=== PATIENT | female | born 1955 | race Caucasian/White ===

== ENCOUNTER 2018-12-24 18:03 | Inpatient (IN) | payer OTHER, MEDICAID, MEDICARE ==
[2018-12-24 18:51] LABS: ADD MAN DIFF? NO
[2018-12-24 18:54] LABS: ABNORMAL IP MESSAGE 1; BASOPHILS % 0.9 % (0.0-2.0); EOSINOPHILS # 0.2 10^3/ul (0.0-0.5); EOSINOPHILS % 5.7 % (0.0-7.0); HEMATOCRIT 33.4 % (37.0-47.0); HEMOGLOBIN 11.2 g/dl (12.0-16.0); LYMPHOCYTES # 0.6 10^3/ul (0.8-2.9); LYMPHOCYTES % 16.7 % (15.0-51.0); MEAN CORPUSCULAR HEMOGLOBIN 37.2 pg (29.0-33.0); MEAN CORPUSCULAR HGB CONC 33.5 g/dl (32.0-37.0); MEAN PLATELET VOLUME 10.5 fl (7.4-10.4); MONOCYTE # 0.4 10^3/ul (0.3-0.9); MONOCYTES % 12.8 % (0.0-11.0); NEUTROPHIL # 2.1 10^3/ul (1.6-7.5); NEUTROPHILS % 63.6 % (39.0-77.0); PLATELET COUNT 165 10^3/UL (140-415); RED BLOOD COUNT 3.01 10^6/ul (4.20-5.40); RED CELL DISTRIBUTION WIDTH 14.4 % (11.5-14.5)
[2018-12-24 18:54] LABS: WHITE BLOOD COUNT 3.4 10^3/ul (4.8-10.8)
[2018-12-24 19:22] LABS: ANION GAP 10 (5-13); BLOOD UREA NITROGEN 27 mg/dl (7-20); CALCIUM 9.8 mg/dl (8.4-10.2); CARBON DIOXIDE 26 mmol/L (21-31); CHLORIDE 99 mmol/L (97-110); CREATININE 2.99 mg/dl (0.44-1.00); Estimated GFR 16 mL/min (>60); GLUCOSE 115 mg/dl (70-220); SODIUM 135 mmol/L (135-144)
[2018-12-24] MEDS: hydrALAzine 20 MG INJ IV ×2 (20:40→22:50)
[2018-12-24] MEDS: FUROSEMIDE 40 MG INJ IV ×2 (20:40→20:54)
[2018-12-25] MEDS ORDERED: NACL 0.9% 3 ML SYG IV (00:30)
[2018-12-25] MEDS: DOXAZOSIN 1 MG TAB PO ×2 (02:36→08:31)
[2018-12-25] MEDS: LOSARTAN 50 MG TAB PO ×3 (02:37→20:58)
[2018-12-25] MEDS: ALPRAZOLAM 1 MG TAB PO (03:58)
[2018-12-25 05:51] LABS: ADD MAN DIFF? NO
[2018-12-25 05:56] LABS: BASOPHILS % 0.9 % (0.0-2.0); EOSINOPHILS # 0.1 10^3/ul (0.0-0.5); EOSINOPHILS % 3.4 % (0.0-7.0); HEMATOCRIT 30.8 % (37.0-47.0); HEMOGLOBIN 10.4 g/dl (12.0-16.0); LYMPHOCYTES # 0.7 10^3/ul (0.8-2.9); MEAN CORPUSCULAR HEMOGLOBIN 37.8 pg (29.0-33.0); MEAN CORPUSCULAR HGB CONC 33.8 g/dl (32.0-37.0); MEAN PLATELET VOLUME 10.4 fl (7.4-10.4); MONOCYTE # 0.5 10^3/ul (0.3-0.9); MONOCYTES % 12.9 % (0.0-11.0); NEUTROPHIL # 2.2 10^3/ul (1.6-7.5); NEUTROPHILS % 61.8 % (39.0-77.0); PLATELET COUNT 164 10^3/UL (140-415); RED BLOOD COUNT 2.75 10^6/ul (4.20-5.40); RED CELL DISTRIBUTION WIDTH 14.6 % (11.5-14.5)
[2018-12-25 05:56] LABS: WHITE BLOOD COUNT 3.5 10^3/ul (4.8-10.8)
[2018-12-25] MEDS: hydrALAzine 20 MG INJ IV (06:16)
[2018-12-25 06:27] LABS: ALANINE AMINOTRANSFERASE 12 IU/L (13-69); ALBUMIN 3.7 g/dl (3.3-4.9); ALBUMIN/GLOBULIN RATIO 1.48; ALKALINE PHOSPHATASE 114 IU/L (42-121); ANION GAP 11 (5-13); ASPARTATE AMINO TRANSFERASE 24 IU/L (15-46); BLOOD UREA NITROGEN 36 mg/dl (7-20); CALCIUM 9.7 mg/dl (8.4-10.2); CARBON DIOXIDE 29 mmol/L (21-31); CHLORIDE 98 mmol/L (97-110); CHOL/HDL RATIO 2.3 RATIO; CHOLESTEROL 126 mg/dl (100-200); Estimated GFR 13 mL/min (>60); GLUCOSE 97 mg/dl (70-220); HDL CHOLESTEROL 54 mg/dl (35-98); LDL CHOLESTEROL,CALCULATED 48 mg/dl; MAGNESIUM 2.6 mg/dl (1.7-2.5); SODIUM 138 mmol/L (135-144); TOTAL PROTEIN 6.2 g/dl (6.1-8.1); TRIGLYCERIDES 122 mg/dl (0-149)
[2018-12-25] MEDS ORDERED: LABETALOL HCL 20MG INJ IV (06:30)
[2018-12-25] MEDS: LORAZEPAM 2 MG INJ IV (07:21)
[2018-12-25 08:08] LABS: HEMOGLOBIN A1C 4.7 % (0-5.9)
[2018-12-25] MEDS: HEPARIN 5,000 UNIT/1 ML VIAL SC ×2 (08:28→21:00)
[2018-12-25] MEDS: LEVOTHYROXINE 112 MCG TAB PO (08:28)
[2018-12-25] MEDS: FOLIC ACID 1 MG TAB PO (08:30)
[2018-12-25] MEDS: LAMOTRIGINE 25 MG TAB PO (08:30)
[2018-12-25] MEDS: CINACALCET 30 MG TAB PO (08:31)
[2018-12-25] MEDS: ASPIRIN (EC) 81 MG TAB PO (08:31)
[2018-12-25] MEDS: MULTIVIT/CA CARB/B CMPLX/FA TAB PO (08:32)
[2018-12-25] MEDS: SEVELAMER CARBONATE 0.8 GM PKT PO ×3 (12:00→17:25)
[2018-12-25] MEDS: ONDANSETRON 4 MG INJ IV (12:12)
[2018-12-25] MEDS: AMLODIPINE 10 MG TAB PO (14:26)
[2018-12-25] MEDS ORDERED: PENDING SANTYL ORDER FOR WOUND CARE XX (14:30)
[2018-12-25 14:54] LABS: HEPATITIS B SURFACE ANTIGEN NEGATIVE (NEGATIVE)
[2018-12-25] MEDS: NIFEdipine (XL) 60 MG TAB PO (16:28)
[2018-12-25] MEDS ORDERED: QUETIAPINE 100 MG TAB PO (21:00)
[2018-12-25] MEDS: QUETIAPINE 100 MG TAB PO (22:40)
[2018-12-25] MEDS: clonAZEPAM 0.5 MG TAB PO (22:40)
[2018-12-26] MEDS: hydrALAzine 20 MG INJ IV ×2 (00:32→21:50)
[2018-12-26] MEDS: ACETAMINOPHEN 325 MG TAB PO (04:22)
[2018-12-26 05:31] LABS: ADD MAN DIFF? NO
[2018-12-26 05:34] LABS: BASOPHIL # 0.1 10^3/ul (0.0-0.1); BASOPHILS % 2.2 % (0.0-2.0); EOSINOPHILS # 0.2 10^3/ul (0.0-0.5); EOSINOPHILS % 5.1 % (0.0-7.0); HEMATOCRIT 31.4 % (37.0-47.0); HEMOGLOBIN 10.1 g/dl (12.0-16.0); LYMPHOCYTES # 0.8 10^3/ul (0.8-2.9); LYMPHOCYTES % 22.3 % (15.0-51.0); MEAN CORPUSCULAR HEMOGLOBIN 36.3 pg (29.0-33.0); MEAN CORPUSCULAR HGB CONC 32.2 g/dl (32.0-37.0); MEAN CORPUSCULAR VOLUME 112.9 fl (82.0-101.0); MEAN PLATELET VOLUME 10.2 fl (7.4-10.4); MONOCYTE # 0.5 10^3/ul (0.3-0.9); NEUTROPHIL # 2.1 10^3/ul (1.6-7.5); NEUTROPHILS % 56.1 % (39.0-77.0); PLATELET COUNT 166 10^3/UL (140-415); RED BLOOD COUNT 2.78 10^6/ul (4.20-5.40); RED CELL DISTRIBUTION WIDTH 14.5 % (11.5-14.5)
[2018-12-26 05:34] LABS: WHITE BLOOD COUNT 3.7 10^3/ul (4.8-10.8)
[2018-12-26 06:00] LABS: ANION GAP 11 (5-13); BLOOD UREA NITROGEN 51 mg/dl (7-20); CALCIUM 9.3 mg/dl (8.4-10.2); CARBON DIOXIDE 28 mmol/L (21-31); CHLORIDE 97 mmol/L (97-110); CREATININE 4.72 mg/dl (0.44-1.00); Estimated GFR 9 mL/min (>60); GLUCOSE 101 mg/dl (70-220); MAGNESIUM 2.7 mg/dl (1.7-2.5); PHOSPHORUS 3.9 mg/dl (2.5-4.9); POTASSIUM 4.8 mmol/L (3.5-5.1); SODIUM 136 mmol/L (135-144)
[2018-12-26] MEDS: LEVOTHYROXINE 112 MCG TAB PO (06:07)
[2018-12-26] MEDS: HEPARIN 5,000 UNIT/1 ML VIAL SC ×2 (09:00→21:00)
[2018-12-26] MEDS: FOLIC ACID 1 MG TAB PO (09:10)
[2018-12-26] MEDS: MULTIVIT/CA CARB/B CMPLX/FA TAB PO (09:10)
[2018-12-26] MEDS: SEVELAMER CARBONATE 0.8 GM PKT PO ×3 (09:11→17:53)
[2018-12-26] MEDS: ASPIRIN (EC) 81 MG TAB PO (09:11)
[2018-12-26] MEDS: CINACALCET 30 MG TAB PO (09:11)
[2018-12-26] MEDS: LOSARTAN 50 MG TAB PO ×2 (09:13→19:44)
[2018-12-26] MEDS: NIFEdipine (XL) 60 MG TAB PO ×2 (09:14→19:45)
[2018-12-26] MEDS: LAMOTRIGINE 25 MG TAB PO (09:14)
[2018-12-26] MEDS: ONDANSETRON 4 MG INJ IV (12:30)
[2018-12-26] MEDS: DOCUSATE SODIUM 250 MG CAP PO (14:15)
[2018-12-26] MEDS: AMOXICILLIN 500 MG CAP PO ×2 (14:15→21:49)
[2018-12-26] MEDS: POLYETHYLENE GLYCOL 17 GM PACKET PO (14:15)
[2018-12-26] MEDS: QUETIAPINE 100 MG TAB PO (21:49)
[2018-12-26] MEDS: MAGNESIUM HYDROXIDE 30ML CUP PO (21:49)
[2018-12-26] MEDS: clonAZEPAM 0.5 MG TAB PO (21:52)
[2018-12-27 06:07] LABS: ADD MAN DIFF? NO
[2018-12-27 06:18] LABS: BASOPHIL # 0.1 10^3/ul (0.0-0.1); BASOPHILS % 1.2 % (0.0-2.0); EOSINOPHILS # 0.3 10^3/ul (0.0-0.5); HEMATOCRIT 31.9 % (37.0-47.0); HEMOGLOBIN 10.5 g/dl (12.0-16.0); LYMPHOCYTES # 0.8 10^3/ul (0.8-2.9); LYMPHOCYTES % 18.3 % (15.0-51.0); MEAN CORPUSCULAR HEMOGLOBIN 36.8 pg (29.0-33.0); MEAN CORPUSCULAR HGB CONC 32.9 g/dl (32.0-37.0); MEAN CORPUSCULAR VOLUME 111.9 fl (82.0-101.0); MEAN PLATELET VOLUME 10.3 fl (7.4-10.4); MONOCYTE # 0.5 10^3/ul (0.3-0.9); MONOCYTES % 11.3 % (0.0-11.0); NEUTROPHIL # 2.6 10^3/ul (1.6-7.5); PLATELET COUNT 193 10^3/UL (140-415); RED BLOOD COUNT 2.85 10^6/ul (4.20-5.40); RED CELL DISTRIBUTION WIDTH 14.6 % (11.5-14.5)
[2018-12-27 06:18] LABS: WHITE BLOOD COUNT 4.2 10^3/ul (4.8-10.8)
[2018-12-27 06:34] LABS: IRON 65 ug/dl (35-150)
[2018-12-27 06:38] LABS: ANION GAP 11 (5-13); BLOOD UREA NITROGEN 39 mg/dl (7-20); CARBON DIOXIDE 30 mmol/L (21-31); CHLORIDE 98 mmol/L (97-110); CREATININE 3.82 mg/dl (0.44-1.00); Estimated GFR 12 mL/min (>60); GLUCOSE 124 mg/dl (70-220); MAGNESIUM 2.8 mg/dl (1.7-2.5); PHOSPHORUS 2.8 mg/dl (2.5-4.9); POTASSIUM 4.7 mmol/L (3.5-5.1); SODIUM 139 mmol/L (135-144)
[2018-12-27 06:43] LABS: % IRON SATURATION 31 % SAT (22-52); TOTAL IRON BINDING CAPACITY 210 ug/dl (241-421)
[2018-12-27] MEDS: AMOXICILLIN 500 MG CAP PO ×3 (06:51→21:33)
[2018-12-27] MEDS: HEPARIN 5,000 UNIT/1 ML VIAL SC ×2 (09:00→20:36)
[2018-12-27] MEDS: SEVELAMER CARBONATE 0.8 GM PKT PO ×3 (09:37→17:56)
[2018-12-27] MEDS: FOLIC ACID 1 MG TAB PO (09:38)
[2018-12-27] MEDS: ASPIRIN (EC) 81 MG TAB PO (09:38)
[2018-12-27] MEDS: POLYETHYLENE GLYCOL 17 GM PACKET PO (09:38)
[2018-12-27] MEDS: LEVOTHYROXINE 112 MCG TAB PO (09:38)
[2018-12-27] MEDS: LAMOTRIGINE 25 MG TAB PO (09:39)
[2018-12-27] MEDS: SENNA TAB PO (09:40)
[2018-12-27] MEDS: MULTIVIT/CA CARB/B CMPLX/FA TAB PO (09:40)
[2018-12-27] MEDS: NIFEdipine (XL) 60 MG TAB PO ×2 (09:41→20:29)
[2018-12-27] MEDS: LOSARTAN 50 MG TAB PO ×2 (09:41→20:28)
[2018-12-27] MEDS: SPIRONOLACTONE 50 MG TAB PO (09:42)
[2018-12-27] MEDS: CINACALCET 30 MG TAB PO (12:27)
[2018-12-27] MEDS: DOCUSATE SODIUM 250 MG CAP PO (12:27)
[2018-12-27 15:48] LABS: ADD UMIC YES; UR ASCORBIC ACID NEGATIVE (NEGATIVE); UR BILIRUBIN (Dip) NEGATIVE (NEGATIVE); UR BLOOD (Dip) NEGATIVE (NEGATIVE); UR CLARITY CLEAR (CLEAR); UR COLOR STRAW (YELLOW); UR GLUCOSE (Dip) NEGATIVE (NEGATIVE); UR KETONES (Dip) NEGATIVE (NEGATIVE); UR LEUKOCYTE ESTERASE (Dip) NEGATIVE Leu/ul (NEGATIVE); UR NITRITE (Dip) NEGATIVE (NEGATIVE); UR RBC 1 /HPF (0-5); UR SPECIFIC GRAVITY (Dip) 1.005 (1.003-1.030); UR TOTAL PROTEIN (Dip) 2+ mg/dl (NEGATIVE); UR UROBILINOGEN (Dip) NEGATIVE (NEGATIVE); UR WBC 0 /HPF (0-5)
[2018-12-27] MEDS: QUETIAPINE 100 MG TAB PO (20:28)
[2018-12-27] MEDS: clonAZEPAM 0.5 MG TAB PO (20:29)
[2018-12-28 05:41] LABS: ADD MAN DIFF? NO
[2018-12-28 05:44] LABS: WHITE BLOOD COUNT 4.8 10^3/ul (4.8-10.8)
[2018-12-28 05:44] LABS: BASOPHIL # 0.1 10^3/ul (0.0-0.1); EOSINOPHILS # 0.3 10^3/ul (0.0-0.5); EOSINOPHILS % 6.9 % (0.0-7.0); HEMATOCRIT 31.5 % (37.0-47.0); HEMOGLOBIN 10.2 g/dl (12.0-16.0); LYMPHOCYTES # 0.9 10^3/ul (0.8-2.9); LYMPHOCYTES % 18.4 % (15.0-51.0); MEAN CORPUSCULAR HEMOGLOBIN 36.4 pg (29.0-33.0); MEAN CORPUSCULAR HGB CONC 32.4 g/dl (32.0-37.0); MEAN CORPUSCULAR VOLUME 112.5 fl (82.0-101.0); MEAN PLATELET VOLUME 10.2 fl (7.4-10.4); MONOCYTE # 0.7 10^3/ul (0.3-0.9); NEUTROPHIL # 2.8 10^3/ul (1.6-7.5); NEUTROPHILS % 59.5 % (39.0-77.0); PLATELET COUNT 186 10^3/UL (140-415); RED CELL DISTRIBUTION WIDTH 14.9 % (11.5-14.5)
[2018-12-28] MEDS: AMOXICILLIN 500 MG CAP PO ×3 (06:14→21:37)
[2018-12-28] MEDS: LEVOTHYROXINE 112 MCG TAB PO (06:14)
[2018-12-28 06:15] LABS: ANION GAP 11 (5-13); BLOOD UREA NITROGEN 62 mg/dl (7-20); CALCIUM 8.9 mg/dl (8.4-10.2); CARBON DIOXIDE 26 mmol/L (21-31); CHLORIDE 99 mmol/L (97-110); CREATININE 4.78 mg/dl (0.44-1.00); Estimated GFR 9 mL/min (>60); GLUCOSE 100 mg/dl (70-220); POTASSIUM 5.9 mmol/L (3.5-5.1); SODIUM 136 mmol/L (135-144)
[2018-12-28] MEDS: SENNA TAB PO (08:39)
[2018-12-28] MEDS: HEPARIN 5,000 UNIT/1 ML VIAL SC ×2 (08:39→21:00)
[2018-12-28] MEDS: SEVELAMER CARBONATE 0.8 GM PKT PO ×3 (08:39→17:29)
[2018-12-28] MEDS: CINACALCET 30 MG TAB PO (08:39)
[2018-12-28] MEDS: LAMOTRIGINE 25 MG TAB PO ×2 (08:40→21:36)
[2018-12-28] MEDS: SPIRONOLACTONE 50 MG TAB PO (08:40)
[2018-12-28] MEDS: DOCUSATE SODIUM 250 MG CAP PO (08:40)
[2018-12-28] MEDS: LOSARTAN 50 MG TAB PO ×2 (08:41→21:37)
[2018-12-28] MEDS: MULTIVIT/CA CARB/B CMPLX/FA TAB PO (08:41)
[2018-12-28] MEDS: FOLIC ACID 1 MG TAB PO (08:41)
[2018-12-28] MEDS: ASPIRIN (EC) 81 MG TAB PO (08:41)
[2018-12-28] MEDS: POLYETHYLENE GLYCOL 17 GM PACKET PO (08:42)
[2018-12-28] MEDS: NIFEdipine (XL) 60 MG TAB PO ×2 (08:42→21:34)
[2018-12-28] MEDS: clonAZEPAM 0.5 MG TAB PO ×2 (08:51→21:38)
[2018-12-28] MEDS: MAGNESIUM CITRATE 300 ML BTL PO (12:10)
[2018-12-28] MEDS ORDERED: LAMOTRIGINE 25 MG TAB GTB (12:30)
[2018-12-28] MEDS: BUSPIRONE 5 MG TAB PO ×2 (14:15→21:37)
[2018-12-28] MEDS: CEFEPIME 1GM/50 ML (PMX) 50 ML IVPB (14:30)
[2018-12-28] MEDS: hydrALAzine 20 MG INJ IV (20:19)
[2018-12-28] MEDS ORDERED: LAMOTRIGINE 25 MG TAB PO (21:00)
[2018-12-28] MEDS: LACTOBACILLUS RHAMNOSUS CAP PO (21:34)
[2018-12-28] MEDS: QUETIAPINE 100 MG TAB PO (21:35)
[2018-12-28] MEDS: HYDROCODONE/APAP (5/325) TAB PO (22:21)
[2018-12-29] MEDS: hydrALAzine 20 MG INJ IV ×2 (04:26→11:46)
[2018-12-29] MEDS: AMOXICILLIN 500 MG CAP PO ×2 (06:08→13:36)
[2018-12-29] MEDS: LEVOTHYROXINE 112 MCG TAB PO (06:08)
[2018-12-29 06:12] LABS: ADD MAN DIFF? NO
[2018-12-29 06:20] LABS: WHITE BLOOD COUNT 4.3 10^3/ul (4.8-10.8)
[2018-12-29 06:21] LABS: BASOPHILS % 0.7 % (0.0-2.0); EOSINOPHILS # 0.3 10^3/ul (0.0-0.5); EOSINOPHILS % 7.5 % (0.0-7.0); HEMATOCRIT 31.7 % (37.0-47.0); HEMOGLOBIN 10.7 g/dl (12.0-16.0); LYMPHOCYTES # 0.7 10^3/ul (0.8-2.9); LYMPHOCYTES % 17.2 % (15.0-51.0); MEAN CORPUSCULAR HEMOGLOBIN 37.4 pg (29.0-33.0); MEAN CORPUSCULAR HGB CONC 33.8 g/dl (32.0-37.0); MEAN CORPUSCULAR VOLUME 110.8 fl (82.0-101.0); MEAN PLATELET VOLUME 9.9 fl (7.4-10.4); MONOCYTE # 0.6 10^3/ul (0.3-0.9); MONOCYTES % 13.4 % (0.0-11.0); NEUTROPHIL # 2.6 10^3/ul (1.6-7.5); PLATELET COUNT 183 10^3/UL (140-415); RED BLOOD COUNT 2.86 10^6/ul (4.20-5.40); RED CELL DISTRIBUTION WIDTH 14.6 % (11.5-14.5)
[2018-12-29 07:01] LABS: ANION GAP 13 (5-13); BLOOD UREA NITROGEN 42 mg/dl (7-20); CALCIUM 8.4 mg/dl (8.4-10.2); CARBON DIOXIDE 27 mmol/L (21-31); CHLORIDE 95 mmol/L (97-110); CREATININE 3.28 mg/dl (0.44-1.00); Estimated GFR 14 mL/min (>60); GLUCOSE 103 mg/dl (70-220); POTASSIUM 5.1 mmol/L (3.5-5.1); SODIUM 135 mmol/L (135-144)
[2018-12-29] MEDS: DOCUSATE SODIUM 250 MG CAP PO (08:16)
[2018-12-29] MEDS: ASPIRIN (EC) 81 MG TAB PO (08:17)
[2018-12-29] MEDS: BUSPIRONE 5 MG TAB PO ×3 (08:17→20:17)
[2018-12-29] MEDS: LACTOBACILLUS RHAMNOSUS CAP PO ×2 (08:17→20:15)
[2018-12-29] MEDS: FOLIC ACID 1 MG TAB PO (08:17)
[2018-12-29] MEDS: MULTIVIT/CA CARB/B CMPLX/FA TAB PO (08:17)
[2018-12-29] MEDS: SENNA TAB PO (08:18)
[2018-12-29] MEDS: NIFEdipine (XL) 60 MG TAB PO ×2 (08:18→20:16)
[2018-12-29] MEDS: LOSARTAN 50 MG TAB PO ×2 (08:18→20:15)
[2018-12-29] MEDS: LAMOTRIGINE 25 MG TAB PO ×2 (08:19→20:15)
[2018-12-29] MEDS: POLYETHYLENE GLYCOL 17 GM PACKET PO (08:19)
[2018-12-29] MEDS: SEVELAMER CARBONATE 0.8 GM PKT PO ×3 (08:19→18:56)
[2018-12-29] MEDS: SPIRONOLACTONE 50 MG TAB PO (08:45)
[2018-12-29] MEDS: CINACALCET 30 MG TAB PO (08:45)
[2018-12-29] MEDS: HEPARIN 5,000 UNIT/1 ML VIAL SC ×2 (08:46→20:17)
[2018-12-29] MEDS: HYDROCODONE/APAP (5/325) TAB PO ×2 (11:47→20:21)
[2018-12-29] MEDS: clonAZEPAM 0.5 MG TAB PO ×2 (13:35→20:15)
[2018-12-29] MEDS: CEFEPIME 1GM/50 ML (PMX) 50 ML IVPB (16:18)
[2018-12-29] MEDS: QUETIAPINE 100 MG TAB PO (20:16)
[2018-12-29] MEDS: BENAZEPRIL 40 MG TAB PO (22:39)
[2018-12-30] MEDS: LEVOTHYROXINE 112 MCG TAB PO (06:03)
[2018-12-30] MEDS: CINACALCET 30 MG TAB PO (09:00)
[2018-12-30] MEDS: HEPARIN 5,000 UNIT/1 ML VIAL SC ×2 (09:00→20:42)
[2018-12-30] MEDS: MULTIVIT/CA CARB/B CMPLX/FA TAB PO (09:30)
[2018-12-30] MEDS: POLYETHYLENE GLYCOL 17 GM PACKET PO (09:30)
[2018-12-30] MEDS: LOSARTAN 50 MG TAB PO ×2 (09:31→20:41)
[2018-12-30] MEDS: FOLIC ACID 1 MG TAB PO (09:31)
[2018-12-30] MEDS: BUSPIRONE 5 MG TAB PO ×3 (09:31→20:39)
[2018-12-30] MEDS: BENAZEPRIL 40 MG TAB PO (09:31)
[2018-12-30] MEDS: LACTOBACILLUS RHAMNOSUS CAP PO ×2 (09:31→20:39)
[2018-12-30] MEDS: SPIRONOLACTONE 50 MG TAB PO (09:32)
[2018-12-30] MEDS: SENNA TAB PO (09:32)
[2018-12-30] MEDS: ASPIRIN (EC) 81 MG TAB PO (09:32)
[2018-12-30] MEDS: LAMOTRIGINE 25 MG TAB PO ×2 (09:32→20:41)
[2018-12-30] MEDS: SEVELAMER CARBONATE 0.8 GM PKT PO ×3 (09:33→18:07)
[2018-12-30] MEDS: DOCUSATE SODIUM 250 MG CAP PO (09:34)
[2018-12-30] MEDS: NIFEdipine (XL) 60 MG TAB PO ×2 (11:40→20:41)
[2018-12-30] MEDS: HYDROCODONE/APAP (5/325) TAB PO ×2 (12:32→23:07)
[2018-12-30] MEDS: ONDANSETRON 4 MG INJ IV (12:56)
[2018-12-30] MEDS: CEFEPIME 1GM/50 ML (PMX) 50 ML IVPB (14:00)
[2018-12-30] MEDS: AMOXICILLIN 500 MG CAP PO (14:01)
[2018-12-30 14:11] LABS: FREE T4 (FREE THYROXINE) 1.14 ng/dl (0.78-2.44)
[2018-12-30] MEDS: clonAZEPAM 0.5 MG TAB PO ×2 (18:07→20:40)
[2018-12-30] MEDS: QUETIAPINE 100 MG TAB PO (20:40)
[2018-12-31] MEDS: LEVOTHYROXINE 112 MCG TAB PO (06:04)
[2018-12-31] MEDS: HYDROCODONE/APAP (5/325) TAB PO (06:11)
[2018-12-31] MEDS: DOCUSATE SODIUM 250 MG CAP PO (08:38)
[2018-12-31] MEDS: SEVELAMER CARBONATE 0.8 GM PKT PO ×3 (08:38→17:54)
[2018-12-31] MEDS: SENNA TAB PO (08:38)
[2018-12-31] MEDS: CINACALCET 30 MG TAB PO (08:38)
[2018-12-31] MEDS: FOLIC ACID 1 MG TAB PO (08:38)
[2018-12-31] MEDS: BUSPIRONE 5 MG TAB PO ×3 (08:38→21:27)
[2018-12-31] MEDS: LAMOTRIGINE 25 MG TAB PO (08:38)
[2018-12-31] MEDS: ASPIRIN (EC) 81 MG TAB PO (08:38)
[2018-12-31] MEDS: MULTIVIT/CA CARB/B CMPLX/FA TAB PO (08:38)
[2018-12-31] MEDS: POLYETHYLENE GLYCOL 17 GM PACKET PO (08:39)
[2018-12-31] MEDS: SPIRONOLACTONE 50 MG TAB PO (08:39)
[2018-12-31] MEDS: NIFEdipine (XL) 60 MG TAB PO ×2 (08:39→21:26)
[2018-12-31] MEDS: LACTOBACILLUS RHAMNOSUS CAP PO ×2 (08:39→21:25)
[2018-12-31] MEDS: LOSARTAN 50 MG TAB PO ×2 (08:39→21:27)
[2018-12-31] MEDS: BENAZEPRIL 40 MG TAB PO (08:40)
[2018-12-31] MEDS: HEPARIN 5,000 UNIT/1 ML VIAL SC ×4 (08:48→21:34)
[2018-12-31] MEDS: LORAZEPAM 2 MG INJ IV (13:38)
[2018-12-31] MEDS: AMOXICILLIN 500 MG CAP PO (14:11)
[2018-12-31] MEDS: CEFEPIME 1GM/50 ML (PMX) 50 ML IVPB (14:12)
[2018-12-31 14:43] LABS: ADD MAN DIFF? NO
[2018-12-31 14:46] LABS: EOSINOPHILS # 0.3 10^3/ul (0.0-0.5); EOSINOPHILS % 7.6 % (0.0-7.0); HEMATOCRIT 28.7 % (37.0-47.0); HEMOGLOBIN 9.6 g/dl (12.0-16.0); LYMPHOCYTES # 0.8 10^3/ul (0.8-2.9); LYMPHOCYTES % 20.4 % (15.0-51.0); MEAN CORPUSCULAR HEMOGLOBIN 36.8 pg (29.0-33.0); MEAN CORPUSCULAR HGB CONC 33.4 g/dl (32.0-37.0); MEAN PLATELET VOLUME 9.6 fl (7.4-10.4); MONOCYTE # 0.6 10^3/ul (0.3-0.9); MONOCYTES % 14.5 % (0.0-11.0); NEUTROPHIL # 2.3 10^3/ul (1.6-7.5); NEUTROPHILS % 56.3 % (39.0-77.0); PLATELET COUNT 160 10^3/UL (140-415); RED BLOOD COUNT 2.61 10^6/ul (4.20-5.40); RED CELL DISTRIBUTION WIDTH 14.5 % (11.5-14.5)
[2018-12-31 14:46] LABS: WHITE BLOOD COUNT 4.1 10^3/ul (4.8-10.8)
[2018-12-31 15:06] LABS: PT RATIO 1.1
[2018-12-31 15:21] LABS: ALANINE AMINOTRANSFERASE 15 IU/L (13-69); ALBUMIN 3.5 g/dl (3.3-4.9); ALBUMIN/GLOBULIN RATIO 1.25; ALKALINE PHOSPHATASE 147 IU/L (42-121); ANION GAP 11 (5-13); ASPARTATE AMINO TRANSFERASE 21 IU/L (15-46); BLOOD UREA NITROGEN 86 mg/dl (7-20); CALCIUM 8.7 mg/dl (8.4-10.2); CARBON DIOXIDE 26 mmol/L (21-31); CHLORIDE 91 mmol/L (97-110); CREATININE 5.14 mg/dl (0.44-1.00); Estimated GFR 8 mL/min (>60); GLUCOSE 89 mg/dl (70-220); MAGNESIUM 3.2 mg/dl (1.7-2.5); PHOSPHORUS 4.1 mg/dl (2.5-4.9); TOTAL PROTEIN 6.3 g/dl (6.1-8.1)
[2018-12-31 15:33] LABS: SODIUM 128 mmol/L (135-144)
[2018-12-31 15:35] LABS: POTASSIUM 6.1 mmol/L (3.5-5.1)
[2018-12-31 15:50] LABS: PARTIAL THROMBOPLASTIN TIME 34.4 Sec (23.0-35.0)
[2018-12-31 15:50] LABS: PROTIME 14.1 Sec (11.9-14.9)
[2018-12-31 15:51] LABS: INR 1.08
[2018-12-31 19:56] LABS: AADO2 Arterial 71.3 mmHg (7.0-24.0); Allen Test ACCEPTAB; Arterial Blood Gas Oxygen Sat 95.8 mmHG (95.0-98.0); Arterial COHb 0.6 % (0.0-3.0); Arterial Fraction of Oxyhgb 95.1 % (93.0-99.0); Arterial MetHb 0.1 % (0.0-1.5); Arterial pCO2 43.8 mmhg (35-45); MODE NASAL CANNULA; Site Right Radial
[2018-12-31] MEDS: clonAZEPAM 0.5 MG TAB PO (21:26)
[2018-12-31] MEDS: QUETIAPINE 100 MG TAB PO (21:27)
[2019-01-01 05:40] LABS: ADD MAN DIFF? NO
[2019-01-01 05:50] LABS: EOSINOPHILS # 0.3 10^3/ul (0.0-0.5); EOSINOPHILS % 8.6 % (0.0-7.0); HEMATOCRIT 29.1 % (37.0-47.0); HEMOGLOBIN 9.7 g/dl (12.0-16.0); LYMPHOCYTES # 0.7 10^3/ul (0.8-2.9); LYMPHOCYTES % 17.9 % (15.0-51.0); MEAN CORPUSCULAR HEMOGLOBIN 37.3 pg (29.0-33.0); MEAN CORPUSCULAR HGB CONC 33.3 g/dl (32.0-37.0); MEAN CORPUSCULAR VOLUME 111.9 fl (82.0-101.0); MEAN PLATELET VOLUME 10.1 fl (7.4-10.4); MONOCYTE # 0.6 10^3/ul (0.3-0.9); MONOCYTES % 15.4 % (0.0-11.0); NEUTROPHIL # 2.3 10^3/ul (1.6-7.5); NEUTROPHILS % 56.8 % (39.0-77.0); PLATELET COUNT 169 10^3/UL (140-415); RED CELL DISTRIBUTION WIDTH 14.4 % (11.5-14.5)
[2019-01-01 06:09] LABS: ANION GAP 11 (5-13); BLOOD UREA NITROGEN 59 mg/dl (7-20); CALCIUM 8.9 mg/dl (8.4-10.2); CARBON DIOXIDE 27 mmol/L (21-31); CHLORIDE 97 mmol/L (97-110); CREATININE 3.67 mg/dl (0.44-1.00); Estimated GFR 12 mL/min (>60); GLUCOSE 96 mg/dl (70-220); MAGNESIUM 2.8 mg/dl (1.7-2.5); POTASSIUM 5.3 mmol/L (3.5-5.1); SODIUM 135 mmol/L (135-144)
[2019-01-01] MEDS: LEVOTHYROXINE 112 MCG TAB PO (06:31)
[2019-01-01] MEDS: ASPIRIN (EC) 81 MG TAB PO (09:57)
[2019-01-01] MEDS: POLYETHYLENE GLYCOL 17 GM PACKET PO (09:58)
[2019-01-01] MEDS: LACTOBACILLUS RHAMNOSUS CAP PO ×2 (09:58→20:24)
[2019-01-01] MEDS: BENAZEPRIL 40 MG TAB PO (09:58)
[2019-01-01] MEDS: NIFEdipine (XL) 60 MG TAB PO ×2 (09:58→20:25)
[2019-01-01] MEDS: CINACALCET 30 MG TAB PO (09:58)
[2019-01-01] MEDS: BUSPIRONE 5 MG TAB PO ×2 (09:58→20:24)
[2019-01-01] MEDS: DOCUSATE SODIUM 250 MG CAP PO (09:58)
[2019-01-01] MEDS: MULTIVIT/CA CARB/B CMPLX/FA TAB PO (09:58)
[2019-01-01] MEDS: SPIRONOLACTONE 50 MG TAB PO (09:59)
[2019-01-01] MEDS: SENNA TAB PO (09:59)
[2019-01-01] MEDS: FOLIC ACID 1 MG TAB PO (09:59)
[2019-01-01] MEDS: SEVELAMER CARBONATE 0.8 GM PKT PO ×3 (09:59→18:00)
[2019-01-01] MEDS: LOSARTAN 50 MG TAB PO ×2 (09:59→20:25)
[2019-01-01] MEDS: HEPARIN 5,000 UNIT/1 ML VIAL SC ×2 (10:08→20:37)
[2019-01-01] MEDS: clonAZEPAM 0.5 MG TAB PO ×5 (12:15→21:40)
[2019-01-01] MEDS: CEFEPIME 1GM/50 ML (PMX) 50 ML IVPB (14:43)
[2019-01-01] MEDS: MAGNESIUM CITRATE 300 ML BTL PO (14:50)
[2019-01-01] MEDS: HYDROCODONE/APAP (5/325) TAB PO ×2 (16:22→22:41)
[2019-01-01] MEDS: QUETIAPINE 100 MG TAB PO (20:24)
[2019-01-01] MEDS: traZODone 50 MG TAB PO (23:00)
[2019-01-02] MEDS: LEVOTHYROXINE 112 MCG TAB PO (06:44)
[2019-01-02] MEDS: BISACODYL 10 MG SUPP PR ×2 (06:45→13:25)
[2019-01-02 07:37] LABS: ADD MAN DIFF? NO
[2019-01-02 07:45] LABS: BASOPHIL # 0.1 10^3/ul (0.0-0.1); BASOPHILS % 1.3 % (0.0-2.0); EOSINOPHILS # 0.3 10^3/ul (0.0-0.5); EOSINOPHILS % 8.6 % (0.0-7.0); HEMOGLOBIN 9.5 g/dl (12.0-16.0); LYMPHOCYTES # 0.7 10^3/ul (0.8-2.9); LYMPHOCYTES % 18.6 % (15.0-51.0); MEAN CORPUSCULAR HEMOGLOBIN 36.7 pg (29.0-33.0); MEAN CORPUSCULAR HGB CONC 32.8 g/dl (32.0-37.0); MEAN PLATELET VOLUME 9.4 fl (7.4-10.4); MONOCYTE # 0.7 10^3/ul (0.3-0.9); MONOCYTES % 17.8 % (0.0-11.0); NEUTROPHILS % 53.4 % (39.0-77.0); PLATELET COUNT 157 10^3/UL (140-415); RED BLOOD COUNT 2.59 10^6/ul (4.20-5.40); RED CELL DISTRIBUTION WIDTH 14.6 % (11.5-14.5)
[2019-01-02 07:45] LABS: WHITE BLOOD COUNT 3.8 10^3/ul (4.8-10.8)
[2019-01-02 08:11] LABS: ANION GAP 11 (5-13); BLOOD UREA NITROGEN 54 mg/dl (7-20); CALCIUM 8.7 mg/dl (8.4-10.2); CARBON DIOXIDE 28 mmol/L (21-31); CHLORIDE 97 mmol/L (97-110); CREATININE 3.55 mg/dl (0.44-1.00); Estimated GFR 13 mL/min (>60); GLUCOSE 94 mg/dl (70-220); POTASSIUM 5.1 mmol/L (3.5-5.1); SODIUM 136 mmol/L (135-144)
[2019-01-02] MEDS: HEPARIN 5,000 UNIT/1 ML VIAL SC ×3 (09:00→21:00)
[2019-01-02] MEDS: LIDOCAINE 1% (MPF) 5 ML VIAL (09:46)
[2019-01-02] MEDS: NIFEdipine (XL) 60 MG TAB PO ×2 (10:20→20:47)
[2019-01-02] MEDS: POLYETHYLENE GLYCOL 17 GM PACKET PO (10:20)
[2019-01-02] MEDS: ASPIRIN (EC) 81 MG TAB PO (10:21)
[2019-01-02] MEDS: LACTOBACILLUS RHAMNOSUS CAP PO ×2 (10:21→20:48)
[2019-01-02] MEDS: MULTIVIT/CA CARB/B CMPLX/FA TAB PO (10:21)
[2019-01-02] MEDS: FOLIC ACID 1 MG TAB PO (10:21)
[2019-01-02] MEDS: CINACALCET 30 MG TAB PO (10:21)
[2019-01-02] MEDS: DOCUSATE SODIUM 250 MG CAP PO (10:21)
[2019-01-02] MEDS: BENAZEPRIL 40 MG TAB PO (10:21)
[2019-01-02] MEDS: SENNA TAB PO (10:22)
[2019-01-02] MEDS: BUSPIRONE 5 MG TAB PO ×2 (10:22→20:47)
[2019-01-02] MEDS: LOSARTAN 50 MG TAB PO ×2 (10:22→20:48)
[2019-01-02] MEDS: clonAZEPAM 0.5 MG TAB PO ×3 (10:22→20:47)
[2019-01-02] MEDS: SPIRONOLACTONE 50 MG TAB PO (10:23)
[2019-01-02] MEDS: SEVELAMER CARBONATE 0.8 GM PKT PO ×3 (10:23→17:04)
[2019-01-02 12:54] LABS: MAGNESIUM 2.7 mg/dl (1.7-2.5)
[2019-01-02] MEDS: HYDROCODONE/APAP (5/325) TAB PO (13:30)
[2019-01-02] MEDS ORDERED: MINERAL OIL 133 ML ENEMA PR (14:00)
[2019-01-02] MEDS: QUETIAPINE 100 MG TAB PO (20:47)
[2019-01-02] MEDS: LAMOTRIGINE 100 MG TAB PO (20:47)
[2019-01-02] MEDS ORDERED: HEPARIN 5,000 UNIT/1 ML VIAL SC (21:00)
[2019-01-02] MEDS: CEFEPIME 1GM/50 ML (PMX) 50 ML IVPB (21:38)
[2019-01-03] MEDS: LEVOTHYROXINE 112 MCG TAB PO (06:01)
[2019-01-03] MEDS: FOLIC ACID 1 MG TAB PO (08:31)
[2019-01-03] MEDS: DOCUSATE SODIUM 250 MG CAP PO (08:31)
[2019-01-03] MEDS: NIFEdipine (XL) 60 MG TAB PO ×2 (08:32→20:14)
[2019-01-03] MEDS: LACTOBACILLUS RHAMNOSUS CAP PO ×2 (08:32→20:14)
[2019-01-03] MEDS: ASPIRIN (EC) 81 MG TAB PO (08:32)
[2019-01-03] MEDS: BUSPIRONE 5 MG TAB PO ×2 (08:33→20:14)
[2019-01-03] MEDS: LOSARTAN 50 MG TAB PO ×2 (08:33→20:15)
[2019-01-03] MEDS: BENAZEPRIL 40 MG TAB PO (08:34)
[2019-01-03] MEDS: MULTIVIT/CA CARB/B CMPLX/FA TAB PO (08:34)
[2019-01-03] MEDS: CINACALCET 30 MG TAB PO (08:34)
[2019-01-03] MEDS: POLYETHYLENE GLYCOL 17 GM PACKET PO ×2 (08:35→20:15)
[2019-01-03] MEDS: LAMOTRIGINE 100 MG TAB PO ×2 (08:35→20:14)
[2019-01-03] MEDS: clonAZEPAM 0.5 MG TAB PO ×4 (08:35→20:14)
[2019-01-03] MEDS: SPIRONOLACTONE 50 MG TAB PO (08:42)
[2019-01-03] MEDS: SENNA TAB PO (08:42)
[2019-01-03] MEDS: SEVELAMER CARBONATE 0.8 GM PKT PO ×3 (08:43→17:18)
[2019-01-03] MEDS: HEPARIN 5,000 UNIT/1 ML VIAL SC ×2 (08:46→20:16)
[2019-01-03 11:27] LABS: ADD MAN DIFF? NO
[2019-01-03 11:30] LABS: WHITE BLOOD COUNT 4.5 10^3/ul (4.8-10.8)
[2019-01-03 11:30] LABS: BASOPHIL # 0.1 10^3/ul (0.0-0.1); BASOPHILS % 1.5 % (0.0-2.0); EOSINOPHILS # 0.4 10^3/ul (0.0-0.5); HEMATOCRIT 31.1 % (37.0-47.0); HEMOGLOBIN 10.4 g/dl (12.0-16.0); LYMPHOCYTES # 0.7 10^3/ul (0.8-2.9); LYMPHOCYTES % 16.2 % (15.0-51.0); MEAN CORPUSCULAR HGB CONC 33.4 g/dl (32.0-37.0); MEAN CORPUSCULAR VOLUME 110.7 fl (82.0-101.0); MEAN PLATELET VOLUME 9.7 fl (7.4-10.4); MONOCYTE # 0.5 10^3/ul (0.3-0.9); MONOCYTES % 11.9 % (0.0-11.0); NEUTROPHIL # 2.8 10^3/ul (1.6-7.5); NEUTROPHILS % 62.2 % (39.0-77.0); PLATELET COUNT 197 10^3/UL (140-415); RED BLOOD COUNT 2.81 10^6/ul (4.20-5.40); RED CELL DISTRIBUTION WIDTH 14.3 % (11.5-14.5)
[2019-01-03 11:54] LABS: ANION GAP 10 (5-13); BLOOD UREA NITROGEN 40 mg/dl (7-20); CALCIUM 8.7 mg/dl (8.4-10.2); CARBON DIOXIDE 29 mmol/L (21-31); CHLORIDE 96 mmol/L (97-110); CREATININE 2.76 mg/dl (0.44-1.00); Estimated GFR 17 mL/min (>60); GLUCOSE 124 mg/dl (70-220); POTASSIUM 4.5 mmol/L (3.5-5.1); SODIUM 135 mmol/L (135-144)
[2019-01-03] MEDS: LUBIPROSTONE 24 MCG CAP PO ×2 (13:00→20:14)
[2019-01-03] MEDS: BISACODYL 10 MG SUPP PR (17:18)
[2019-01-03] MEDS: QUETIAPINE 100 MG TAB PO (20:15)
[2019-01-03] MEDS: CEFEPIME 1GM/50 ML (PMX) 50 ML IVPB (20:15)
[2019-01-04] MEDS: LEVOTHYROXINE 112 MCG TAB PO (06:23)
[2019-01-04] MEDS: LACTOBACILLUS RHAMNOSUS CAP PO ×2 (10:09→21:18)
[2019-01-04] MEDS: LUBIPROSTONE 24 MCG CAP PO ×2 (10:09→21:25)
[2019-01-04] MEDS: MULTIVIT/CA CARB/B CMPLX/FA TAB PO (10:09)
[2019-01-04] MEDS: NIFEdipine (XL) 60 MG TAB PO ×2 (10:11→21:19)
[2019-01-04] MEDS: FOLIC ACID 1 MG TAB PO (10:11)
[2019-01-04] MEDS: LOSARTAN 50 MG TAB PO ×2 (10:12→21:17)
[2019-01-04] MEDS: BENAZEPRIL 40 MG TAB PO (10:12)
[2019-01-04] MEDS: clonAZEPAM 0.5 MG TAB PO ×4 (10:12→21:18)
[2019-01-04] MEDS: BUSPIRONE 5 MG TAB PO ×2 (10:12→21:17)
[2019-01-04] MEDS: ASPIRIN (EC) 81 MG TAB PO (10:12)
[2019-01-04] MEDS: LAMOTRIGINE 100 MG TAB PO ×2 (10:12→21:18)
[2019-01-04] MEDS: DOCUSATE SODIUM 250 MG CAP PO (10:12)
[2019-01-04] MEDS: SPIRONOLACTONE 50 MG TAB PO (10:13)
[2019-01-04] MEDS: CINACALCET 30 MG TAB PO (10:13)
[2019-01-04] MEDS: SENNA TAB PO (10:13)
[2019-01-04] MEDS: SEVELAMER CARBONATE 0.8 GM PKT PO ×3 (10:13→17:40)
[2019-01-04] MEDS: HEPARIN 5,000 UNIT/1 ML VIAL SC ×2 (10:15→21:00)
[2019-01-04] MEDS: POLYETHYLENE GLYCOL 17 GM PACKET PO ×2 (10:16→21:19)
[2019-01-04] MEDS: BISACODYL 10 MG SUPP PR (11:42)
[2019-01-04] MEDS: PEG/ELECTROLYTES 4L BTL PO (13:00)
[2019-01-04] MEDS ORDERED: LACTULOSE 30ML CUP PO (15:00)
[2019-01-04] MEDS: CEFEPIME 1GM/50 ML (PMX) 50 ML IVPB (21:16)
[2019-01-04] MEDS: QUETIAPINE 100 MG TAB PO (21:19)
[2019-01-04] MEDS: HYDROCODONE/APAP (5/325) TAB PO (21:21)
[2019-01-04] MEDS: morphine 2 MG INJ IV (23:54)
[2019-01-05] MEDS: LEVOTHYROXINE 112 MCG TAB PO (06:03)
[2019-01-05] MEDS: ALBUTEROL/IPRATROPIUM (NEB) 3 ML AMP HHN ×2 (08:27→13:26)
[2019-01-05] MEDS: HEPARIN 5,000 UNIT/1 ML VIAL SC ×3 (09:00→20:22)
[2019-01-05] MEDS: clonAZEPAM 0.5 MG TAB PO ×3 (09:22→20:16)
[2019-01-05] MEDS: ASPIRIN (EC) 81 MG TAB PO (09:22)
[2019-01-05] MEDS: BUSPIRONE 5 MG TAB PO ×2 (09:22→20:17)
[2019-01-05] MEDS: LUBIPROSTONE 24 MCG CAP PO ×2 (09:23→20:17)
[2019-01-05] MEDS: SENNA TAB PO (09:23)
[2019-01-05] MEDS: CINACALCET 30 MG TAB PO (09:23)
[2019-01-05] MEDS: DOCUSATE SODIUM 250 MG CAP PO (09:23)
[2019-01-05] MEDS: LAMOTRIGINE 100 MG TAB PO ×2 (09:24→20:16)
[2019-01-05] MEDS: LOSARTAN 50 MG TAB PO ×2 (09:24→20:16)
[2019-01-05] MEDS: SPIRONOLACTONE 50 MG TAB PO (09:24)
[2019-01-05] MEDS: BENAZEPRIL 40 MG TAB PO (09:25)
[2019-01-05] MEDS: SEVELAMER CARBONATE 0.8 GM PKT PO ×3 (09:25→17:37)
[2019-01-05] MEDS: LACTOBACILLUS RHAMNOSUS CAP PO ×2 (09:25→20:16)
[2019-01-05] MEDS: FOLIC ACID 1 MG TAB PO (09:25)
[2019-01-05] MEDS: NIFEdipine (XL) 60 MG TAB PO ×2 (09:25→20:17)
[2019-01-05] MEDS: POLYETHYLENE GLYCOL 17 GM PACKET PO ×2 (09:25→20:17)
[2019-01-05] MEDS: MULTIVIT/CA CARB/B CMPLX/FA TAB PO (09:25)
[2019-01-05] MEDS: morphine 2 MG INJ IV (13:44)
[2019-01-05] MEDS: hydrALAzine 20 MG INJ IV (14:10)
[2019-01-05] MEDS: QUETIAPINE 100 MG TAB PO (20:16)
[2019-01-05] MEDS: CEFEPIME 1GM/50 ML (PMX) 50 ML IVPB (20:17)
[2019-01-05] MEDS: HYDROCODONE/APAP (5/325) TAB PO (22:12)
[2019-01-06] MEDS: clonAZEPAM 0.5 MG TAB PO ×4 (00:14→21:07)
[2019-01-06] MEDS: FUROSEMIDE 40 MG INJ IV ×2 (03:51→16:29)
[2019-01-06] MEDS: LEVOTHYROXINE 112 MCG TAB PO (06:49)
[2019-01-06 08:22] LABS: ADD MAN DIFF? NO; BASOPHIL # 0.1 10^3/ul (0.0-0.1); BASOPHILS % 1.4 % (0.0-2.0); EOSINOPHILS # 0.5 10^3/ul (0.0-0.5); EOSINOPHILS % 10.6 % (0.0-7.0); HEMATOCRIT 25.1 % (37.0-47.0); HEMOGLOBIN 8.2 g/dl (12.0-16.0); LYMPHOCYTES # 0.9 10^3/ul (0.8-2.9); LYMPHOCYTES % 19.2 % (15.0-51.0); MEAN CORPUSCULAR HEMOGLOBIN 36.4 pg (29.0-33.0); MEAN CORPUSCULAR HGB CONC 32.7 g/dl (32.0-37.0); MEAN CORPUSCULAR VOLUME 111.6 fl (82.0-101.0); MEAN PLATELET VOLUME 9.9 fl (7.4-10.4); MONOCYTE # 0.6 10^3/ul (0.3-0.9); MONOCYTES % 14.5 % (0.0-11.0); NEUTROPHIL # 2.4 10^3/ul (1.6-7.5); NEUTROPHILS % 54.1 % (39.0-77.0); PLATELET COUNT 155 10^3/UL (140-415); RED BLOOD COUNT 2.25 10^6/ul (4.20-5.40); RED CELL DISTRIBUTION WIDTH 13.8 % (11.5-14.5)
[2019-01-06 08:22] LABS: WHITE BLOOD COUNT 4.4 10^3/ul (4.8-10.8)
[2019-01-06 08:45] LABS: BLOOD UREA NITROGEN 59 mg/dl (7-20); CALCIUM 8.8 mg/dl (8.4-10.2); CARBON DIOXIDE 30 mmol/L (21-31); CHLORIDE 96 mmol/L (97-110); Estimated GFR 15 mL/min (>60); GLUCOSE 103 mg/dl (70-220); MAGNESIUM 2.5 mg/dl (1.7-2.5); PHOSPHORUS 2.6 mg/dl (2.5-4.9); POTASSIUM 4.5 mmol/L (3.5-5.1)
[2019-01-06 08:51] LABS: ANION GAP 7 (5-13); SODIUM 133 mmol/L (135-144)
[2019-01-06] MEDS: HEPARIN 5,000 UNIT/1 ML VIAL SC ×2 (09:00→21:10)
[2019-01-06] MEDS: LUBIPROSTONE 24 MCG CAP PO ×2 (09:43→21:07)
[2019-01-06] MEDS: SENNA TAB PO (09:43)
[2019-01-06] MEDS: FOLIC ACID 1 MG TAB PO (09:43)
[2019-01-06] MEDS: MULTIVIT/CA CARB/B CMPLX/FA TAB PO (09:43)
[2019-01-06] MEDS: BUSPIRONE 5 MG TAB PO ×2 (09:43→21:07)
[2019-01-06] MEDS: LAMOTRIGINE 100 MG TAB PO ×2 (09:44→21:09)
[2019-01-06] MEDS: CINACALCET 30 MG TAB PO (09:45)
[2019-01-06] MEDS: ASPIRIN (EC) 81 MG TAB PO (09:45)
[2019-01-06] MEDS: DOCUSATE SODIUM 250 MG CAP PO (09:45)
[2019-01-06] MEDS: LACTOBACILLUS RHAMNOSUS CAP PO ×2 (09:45→21:07)
[2019-01-06] MEDS: POLYETHYLENE GLYCOL 17 GM PACKET PO ×2 (09:45→21:06)
[2019-01-06] MEDS: SEVELAMER CARBONATE 0.8 GM PKT PO ×3 (09:46→17:25)
[2019-01-06] MEDS: SPIRONOLACTONE 50 MG TAB PO (09:46)
[2019-01-06] MEDS: LOSARTAN 50 MG TAB PO ×2 (10:36→21:07)
[2019-01-06] MEDS: BENAZEPRIL 40 MG TAB PO (10:37)
[2019-01-06] MEDS: NIFEdipine (XL) 60 MG TAB PO ×2 (10:37→21:09)
[2019-01-06] MEDS: HYDROCODONE/APAP (5/325) TAB PO (18:13)
[2019-01-06] MEDS: CEFEPIME 1GM/50 ML (PMX) 50 ML IVPB (21:06)
[2019-01-06] MEDS: QUETIAPINE 100 MG TAB PO (21:07)
[2019-01-07] MEDS: hydrALAzine 20 MG INJ IV ×2 (02:09→16:39)
[2019-01-07] MEDS: LEVOTHYROXINE 112 MCG TAB PO (06:08)
[2019-01-07] MEDS: LACTOBACILLUS RHAMNOSUS CAP PO (08:52)
[2019-01-07] MEDS: MULTIVIT/CA CARB/B CMPLX/FA TAB PO (08:52)
[2019-01-07] MEDS: ASPIRIN (EC) 81 MG TAB PO (08:52)
[2019-01-07] MEDS: CINACALCET 30 MG TAB PO (08:52)
[2019-01-07] MEDS: clonAZEPAM 0.5 MG TAB PO ×4 (08:52→17:50)
[2019-01-07] MEDS: LUBIPROSTONE 24 MCG CAP PO (08:52)
[2019-01-07] MEDS: BUSPIRONE 5 MG TAB PO (08:52)
[2019-01-07] MEDS: SEVELAMER CARBONATE 0.8 GM PKT PO ×3 (08:53→17:22)
[2019-01-07] MEDS: DOCUSATE SODIUM 250 MG CAP PO (08:53)
[2019-01-07] MEDS: POLYETHYLENE GLYCOL 17 GM PACKET PO (08:53)
[2019-01-07] MEDS: SENNA TAB PO (08:53)
[2019-01-07] MEDS: SPIRONOLACTONE 50 MG TAB PO (08:53)
[2019-01-07] MEDS: FOLIC ACID 1 MG TAB PO (08:53)
[2019-01-07] MEDS: LAMOTRIGINE 100 MG TAB PO (08:53)
[2019-01-07] MEDS: HEPARIN 5,000 UNIT/1 ML VIAL SC (08:54)
[2019-01-07] MEDS: NIFEdipine (XL) 60 MG TAB PO ×2 (09:00→12:11)
[2019-01-07] MEDS: LOSARTAN 50 MG TAB PO ×2 (09:00→14:47)
[2019-01-07] MEDS: BENAZEPRIL 40 MG TAB PO ×2 (09:00→12:56)
[2019-01-07] MEDS: ONDANSETRON 4 MG INJ IV (10:23)
[2019-01-07] MEDS: ASA/ACETAMINOPHEN/CAFF TAB PO (12:11)
[2019-01-07] MEDS: EPOETIN ALFA-EPBX (NON-ESRD 10,000 UNIT/ML VIAL SC (16:42)
== END 2019-01-07 19:10 | DRG 252 ==
LOC: 2NE 12-27 18:05 → 5EC 01-01 20:48 → E/R 18:03 → 6WM 20:28 → 2NE 12-26 23:57
PROC: 027V3ZZ Dilation of Superior Vena Cava, Percutaneous Approach (ICD-10-PCS; 2019-01-04 08:30)
PROC: 05743ZZ Dilation of Left Innominate Vein, Percutaneous Approach (ICD-10-PCS; 2019-01-04 08:30)
PROC: B51WYZZ Fluoroscopy of Dialysis Shunt/Fistula using Other Contrast (ICD-10-PCS; 2019-01-04 08:30)
PROC: B51NYZZ Fluoroscopy of Left Upper Extremity Veins using Other Contrast (ICD-10-PCS; 2019-01-04 08:30)
PROC: 5A1D70Z Performance of Urinary Filtration, Intermittent, Less than 6 Hours Per Day (ICD-10-PCS; principal; 2019-01-04 08:44)
PROC: 0W993ZZ Drainage of Right Pleural Cavity, Percutaneous Approach (ICD-10-PCS; 2019-01-04 08:44)
DX: I16.0 Hypertensive urgency (principal); N18.6 End stage renal disease; J18.9 Pneumonia, unspecified organism; G92 Toxic encephalopathy; J90 Pleural effusion, not elsewhere classified; I31.3 Pericardial effusion (noninflammatory); J98.11 Atelectasis; T82.856A Stenosis of peripheral vascular stent, initial encounter; T82.898A Other specified complication of vascular prosthetic devices, implants and grafts, initial encounter; I12.0 Hypertensive chronic kidney disease with stage 5 chronic kidney disease or end stage renal disease; D63.1 Anemia in chronic kidney disease; D72.819 Decreased white blood cell count, unspecified; D53.9 Nutritional anemia, unspecified; E87.70 Fluid overload, unspecified; E03.9 Hypothyroidism, unspecified; E78.5 Hyperlipidemia, unspecified; E87.5 Hyperkalemia; F31.9 Bipolar disorder, unspecified; F41.9 Anxiety disorder, unspecified; F03.90 Unspecified dementia, unspecified severity, without behavioral disturbance, psychotic disturbance, mood disturbance, and anxiety; F91.9 Conduct disorder, unspecified; J32.0 Chronic maxillary sinusitis; K59.09 Other constipation; K52.9 Noninfective gastroenteritis and colitis, unspecified; M62.838 Other muscle spasm; M62.50 Muscle wasting and atrophy, not elsewhere classified, unspecified site; R06.03 Acute respiratory distress; R53.81 Other malaise; R29.6 Repeated falls; R60.1 Generalized edema; R14.0 Abdominal distension (gaseous); R22.1 Localized swelling, mass and lump, neck; Y95 Nosocomial condition; Y83.8 Other surgical procedures as the cause of abnormal reaction of the patient, or of later complication, without mention of misadventure at the time of the procedure; Z99.2 Dependence on renal dialysis; Z79.82 Long term (current) use of aspirin
CPT/HCPCS: 36415; 36600; 36902; 70450; 70551; 71045; 71250; 74018; 74176; 76536; 76700; 76942; 80048; 80053; 80061; 81001; 82803; 83036; 83540; 83735; 84100; 84439; 84443; 85025; 85610; 85730; 87070; 87081; 87102; 87116; 87340; 90935; 93005; 93306; 93970; 93971; 94640; 94664; 97110; 97116; 97161; 97530; 99285-25

== ENCOUNTER 2019-01-09 02:16 | Inpatient (IN) | payer OTHER ==
[2019-01-09] MEDS: SOD CHLORIDE 0.9% 500 ML IV (02:55)
[2019-01-09] MEDS: HYDROmorphONE 1 MG/ML SYG IV (02:56)
[2019-01-09] MEDS: ONDANSETRON 4 MG INJ IV ×3 (02:56→20:33)
[2019-01-09 03:07] LABS: ADD MAN DIFF? NO
[2019-01-09 03:08] LABS: WHITE BLOOD COUNT 4.5 10^3/ul (4.8-10.8)
[2019-01-09 03:08] LABS: BASOPHIL # 0.1 10^3/ul (0.0-0.1); BASOPHILS % 1.3 % (0.0-2.0); EOSINOPHILS # 0.3 10^3/ul (0.0-0.5); EOSINOPHILS % 7.3 % (0.0-7.0); HEMATOCRIT 26.8 % (37.0-47.0); HEMOGLOBIN 9.1 g/dl (12.0-16.0); LYMPHOCYTES # 0.7 10^3/ul (0.8-2.9); LYMPHOCYTES % 15.9 % (15.0-51.0); MEAN CORPUSCULAR HEMOGLOBIN 37.4 pg (29.0-33.0); MEAN CORPUSCULAR VOLUME 110.3 fl (82.0-101.0); MEAN PLATELET VOLUME 10.1 fl (7.4-10.4); MONOCYTE # 0.6 10^3/ul (0.3-0.9); MONOCYTES % 12.4 % (0.0-11.0); NEUTROPHIL # 2.8 10^3/ul (1.6-7.5); NEUTROPHILS % 62.9 % (39.0-77.0); PLATELET COUNT 203 10^3/UL (140-415); RED BLOOD COUNT 2.43 10^6/ul (4.20-5.40)
[2019-01-09 03:42] LABS: ALANINE AMINOTRANSFERASE 21 IU/L (13-69); ALBUMIN 3.8 g/dl (3.3-4.9); ALBUMIN/GLOBULIN RATIO 1.18; ALKALINE PHOSPHATASE 188 IU/L (42-121); ANION GAP 12 (5-13); ASPARTATE AMINO TRANSFERASE 30 IU/L (15-46); BILIRUBIN,INDIRECT 0.1 mg/dl (0-1.1); BILIRUBIN,TOTAL 0.1 mg/dl (0.2-1.3); BLOOD UREA NITROGEN 62 mg/dl (7-20); CALCIUM 8.6 mg/dl (8.4-10.2); CARBON DIOXIDE 30 mmol/L (21-31); CHLORIDE 94 mmol/L (97-110); CREATININE 3.17 mg/dl (0.44-1.00); Estimated GFR 15 mL/min (>60); GLUCOSE 118 mg/dl (70-220); LIPASE 314 U/L (23-300); POTASSIUM 4.6 mmol/L (3.5-5.1); SODIUM 136 mmol/L (135-144)
[2019-01-09 03:54] LABS: TROPONIN-I 0.049 ng/ml (0.000-0.120)
[2019-01-09] MEDS: PIPER-TAZO 3.375 GM IV (PMX) 100 ML IVPB ×3 (05:47→22:20)
[2019-01-09] MEDS ORDERED: NACL 0.9% 3 ML SYG IV (07:30)
[2019-01-09] MEDS ORDERED: ALBUTEROL/IPRATROPIUM (NEB) 3 ML AMP HHN ×2 (07:30→15:00)
[2019-01-09] MEDS: hydrALAzine 20 MG INJ IV ×5 (07:45→20:13)
[2019-01-09] MEDS: FAMOTIDINE 20 MG INJ IV ×2 (07:45→08:37)
[2019-01-09] MEDS: LORAZEPAM 1 MG TAB PO (08:38)
[2019-01-09] MEDS: SOD CHLORIDE 0.9% 100 ML (13:52)
[2019-01-09] MEDS: IOHEXOL 300MG/ML 150 ML BTL (13:54)
[2019-01-09] MEDS: morphine 2 MG INJ IV (14:15)
[2019-01-09] MEDS: LOSARTAN 50 MG TAB PO ×2 (15:19→20:19)
[2019-01-09] MEDS ORDERED: LABETALOL HCL 20MG INJ (17:32)
[2019-01-09] MEDS: LABETALOL HCL 20MG INJ IV (17:35)
[2019-01-09] MEDS: BUSPIRONE 5 MG TAB PO (20:17)
[2019-01-09] MEDS: clonAZEPAM 0.5 MG TAB PO (20:17)
[2019-01-09] MEDS: QUETIAPINE 100 MG TAB PO (20:17)
[2019-01-09] MEDS: SEVELAMER CARBONATE 0.8 GM PKT PO (20:17)
[2019-01-09] MEDS: LACTOBACILLUS RHAMNOSUS CAP PO (20:18)
[2019-01-09] MEDS: NIFEdipine (XL) 60 MG TAB PO (20:18)
[2019-01-09] MEDS: DOXAZOSIN 1 MG TAB PO (20:18)
[2019-01-09] MEDS ORDERED: QUETIAPINE 100 MG TAB PO (21:00)
[2019-01-09] MEDS: EPOETIN ALFA-EPBX (NON-ESRD 10,000 UNIT/ML VIAL SC (22:22)
[2019-01-09] MEDS: HEPARIN 5,000 UNIT/1 ML VIAL SC (22:45)
[2019-01-10] MEDS: ONDANSETRON 4 MG INJ IV (04:32)
[2019-01-10] MEDS: hydrALAzine 20 MG INJ IV (04:32)
[2019-01-10] MEDS: PIPER-TAZO 3.375 GM IV (PMX) 100 ML IVPB ×3 (06:05→21:51)
[2019-01-10 07:14] LABS: ADD MAN DIFF? NO
[2019-01-10 07:18] LABS: ABNORMAL IP MESSAGE 1; BASOPHIL # 0.1 10^3/ul (0.0-0.1); BASOPHILS % 1.7 % (0.0-2.0); EOSINOPHILS # 0.2 10^3/ul (0.0-0.5); EOSINOPHILS % 5.2 % (0.0-7.0); HEMATOCRIT 25.4 % (37.0-47.0); HEMOGLOBIN 8.4 g/dl (12.0-16.0); LYMPHOCYTES # 0.6 10^3/ul (0.8-2.9); LYMPHOCYTES % 17.2 % (15.0-51.0); MEAN CORPUSCULAR HEMOGLOBIN 36.2 pg (29.0-33.0); MEAN CORPUSCULAR HGB CONC 33.1 g/dl (32.0-37.0); MEAN CORPUSCULAR VOLUME 109.5 fl (82.0-101.0); MEAN PLATELET VOLUME 10.3 fl (7.4-10.4); MONOCYTE # 0.4 10^3/ul (0.3-0.9); MONOCYTES % 12.8 % (0.0-11.0); NEUTROPHIL # 2.2 10^3/ul (1.6-7.5); NEUTROPHILS % 62.8 % (39.0-77.0); PLATELET COUNT 183 10^3/UL (140-415); RED BLOOD COUNT 2.32 10^6/ul (4.20-5.40); RED CELL DISTRIBUTION WIDTH 13.1 % (11.5-14.5)
[2019-01-10 07:18] LABS: WHITE BLOOD COUNT 3.4 10^3/ul (4.8-10.8)
[2019-01-10 07:23] LABS: POSITIVE DIFF @See below
[2019-01-10 07:40] LABS: ALANINE AMINOTRANSFERASE 24 IU/L (13-69); ALBUMIN 3.7 g/dl (3.3-4.9); ALBUMIN/GLOBULIN RATIO 1.37; ALKALINE PHOSPHATASE 135 IU/L (42-121); ANION GAP 12 (5-13); ASPARTATE AMINO TRANSFERASE 26 IU/L (15-46); BLOOD UREA NITROGEN 75 mg/dl (7-20); CALCIUM 8.7 mg/dl (8.4-10.2); CARBON DIOXIDE 27 mmol/L (21-31); CHLORIDE 96 mmol/L (97-110); CREATININE 4.43 mg/dl (0.44-1.00); Estimated GFR 10 mL/min (>60); GLUCOSE 101 mg/dl (70-220); MAGNESIUM 2.8 mg/dl (1.7-2.5); PHOSPHORUS 4.2 mg/dl (2.5-4.9); POTASSIUM 5.1 mmol/L (3.5-5.1); SODIUM 135 mmol/L (135-144); TOTAL PROTEIN 6.4 g/dl (6.1-8.1)
[2019-01-10] MEDS: FAMOTIDINE 20 MG INJ IV (08:28)
[2019-01-10] MEDS: SPIRONOLACTONE 50 MG TAB PO (08:29)
[2019-01-10] MEDS: SEVELAMER CARBONATE 0.8 GM PKT PO ×3 (08:30→21:45)
[2019-01-10] MEDS: CINACALCET 30 MG TAB PO (08:30)
[2019-01-10] MEDS: SENNA TAB PO ×2 (08:30→21:48)
[2019-01-10] MEDS: POLYETHYLENE GLYCOL 17 GM PACKET PO (08:30)
[2019-01-10] MEDS: FOLIC ACID 1 MG TAB PO (08:31)
[2019-01-10] MEDS: LOSARTAN 50 MG TAB PO ×2 (08:31→21:47)
[2019-01-10] MEDS: NIFEdipine (XL) 60 MG TAB PO ×2 (08:31→21:50)
[2019-01-10] MEDS: MULTIVIT/CA CARB/B CMPLX/FA TAB PO (08:31)
[2019-01-10] MEDS: ASPIRIN (EC) 81 MG TAB PO (08:31)
[2019-01-10] MEDS: DOCUSATE SODIUM 250 MG CAP PO ×2 (08:32→21:48)
[2019-01-10] MEDS: DOXAZOSIN 1 MG TAB PO ×2 (08:34→21:49)
[2019-01-10] MEDS: LACTOBACILLUS RHAMNOSUS CAP PO ×2 (08:37→21:45)
[2019-01-10] MEDS: DULOXETINE 30 MG CAP DR PO (08:38)
[2019-01-10] MEDS: BUSPIRONE 5 MG TAB PO ×2 (08:40→21:47)
[2019-01-10] MEDS: LEVOTHYROXINE 100 MCG TAB PO (08:40)
[2019-01-10] MEDS: HEPARIN 5,000 UNIT/1 ML VIAL SC ×2 (08:46→22:13)
[2019-01-10] MEDS: ASA/ACETAMINOPHEN/CAFF TAB PO (08:51)
[2019-01-10] MEDS ORDERED: DOCUSATE SODIUM 250 MG CAP PO (09:00)
[2019-01-10] MEDS ORDERED: SENNA TAB PO (09:00)
[2019-01-10] MEDS: clonAZEPAM 0.5 MG TAB PO (11:07)
[2019-01-10] MEDS ORDERED: clonAZEPAM 0.5 MG TAB PO (14:00)
[2019-01-10] MEDS ORDERED: QUETIAPINE 100 MG TAB PO (18:00)
[2019-01-10] MEDS: QUETIAPINE 100 MG TAB PO (21:50)
[2019-01-11] MEDS: PIPER-TAZO 3.375 GM IV (PMX) 100 ML IVPB ×2 (05:50→13:34)
[2019-01-11] MEDS: clonAZEPAM 0.5 MG TAB PO ×2 (08:53→20:01)
[2019-01-11] MEDS: BUSPIRONE 5 MG TAB PO ×2 (08:54→20:30)
[2019-01-11] MEDS: BALSAM PERU/CASTOR OIL 60 GM TUBE TOP (08:54)
[2019-01-11] MEDS: LEVOTHYROXINE 100 MCG TAB PO (08:55)
[2019-01-11] MEDS: CINACALCET 30 MG TAB PO (08:55)
[2019-01-11] MEDS: SPIRONOLACTONE 50 MG TAB PO (08:55)
[2019-01-11] MEDS: DULOXETINE 30 MG CAP DR PO (08:56)
[2019-01-11] MEDS: ASPIRIN (EC) 81 MG TAB PO (08:56)
[2019-01-11] MEDS: MULTIVIT/CA CARB/B CMPLX/FA TAB PO (08:56)
[2019-01-11] MEDS: FAMOTIDINE 20 MG INJ IV (08:57)
[2019-01-11] MEDS: DOCUSATE SODIUM 250 MG CAP PO ×2 (08:57→20:30)
[2019-01-11] MEDS: SEVELAMER CARBONATE 0.8 GM PKT PO ×3 (08:58→20:30)
[2019-01-11] MEDS: POLYETHYLENE GLYCOL 17 GM PACKET PO (08:58)
[2019-01-11] MEDS: SENNA TAB PO ×2 (08:59→20:29)
[2019-01-11] MEDS: LOSARTAN 50 MG TAB PO ×2 (09:00→20:25)
[2019-01-11] MEDS: LACTOBACILLUS RHAMNOSUS CAP PO ×2 (09:00→20:25)
[2019-01-11] MEDS: DOXAZOSIN 1 MG TAB PO ×2 (09:00→20:29)
[2019-01-11] MEDS: NIFEdipine (XL) 60 MG TAB PO ×2 (09:00→20:29)
[2019-01-11] MEDS: FOLIC ACID 1 MG TAB PO (09:00)
[2019-01-11] MEDS: HEPARIN 5,000 UNIT/1 ML VIAL SC ×2 (09:47→20:43)
[2019-01-11] MEDS: LIDOCAINE 1% (MPF) 5 ML VIAL (16:04)
[2019-01-11] MEDS: EPOETIN ALFA-EPBX (NON-ESRD 10,000 UNIT/ML VIAL SC (17:40)
[2019-01-11] MEDS: hydrALAzine 20 MG INJ IV (18:24)
[2019-01-11] MEDS: ASA/ACETAMINOPHEN/CAFF TAB PO (18:52)
[2019-01-11] MEDS: QUETIAPINE 100 MG TAB PO (20:29)
[2019-01-11] MEDS: PIPER-TAZO 2.25 GM/NS 50 ML IVPB (22:13)
[2019-01-12] MEDS: PIPER-TAZO 2.25 GM/NS 50 ML IVPB ×2 (06:08→13:43)
[2019-01-12] MEDS: MULTIVIT/CA CARB/B CMPLX/FA TAB PO (08:48)
[2019-01-12] MEDS: ASPIRIN (EC) 81 MG TAB PO (08:48)
[2019-01-12] MEDS: DOXAZOSIN 1 MG TAB PO (08:49)
[2019-01-12] MEDS: LOSARTAN 50 MG TAB PO (08:49)
[2019-01-12] MEDS: CINACALCET 30 MG TAB PO (08:49)
[2019-01-12] MEDS: DOCUSATE SODIUM 250 MG CAP PO (08:49)
[2019-01-12] MEDS: FOLIC ACID 1 MG TAB PO (08:50)
[2019-01-12] MEDS: LACTOBACILLUS RHAMNOSUS CAP PO (08:50)
[2019-01-12] MEDS: SPIRONOLACTONE 50 MG TAB PO (08:50)
[2019-01-12] MEDS: NIFEdipine (XL) 60 MG TAB PO (08:50)
[2019-01-12] MEDS: SENNA TAB PO (08:50)
[2019-01-12] MEDS: DULOXETINE 30 MG CAP DR PO (08:50)
[2019-01-12] MEDS: BUSPIRONE 5 MG TAB PO (08:51)
[2019-01-12] MEDS: LEVOTHYROXINE 100 MCG TAB PO (08:51)
[2019-01-12] MEDS: SEVELAMER CARBONATE 0.8 GM PKT PO ×2 (08:51→13:00)
[2019-01-12] MEDS: POLYETHYLENE GLYCOL 17 GM PACKET PO (08:51)
[2019-01-12] MEDS: FAMOTIDINE 20 MG INJ IV (08:51)
[2019-01-12] MEDS: BALSAM PERU/CASTOR OIL 60 GM TUBE TOP (08:52)
[2019-01-12] MEDS: HEPARIN 5,000 UNIT/1 ML VIAL SC (09:09)
[2019-01-12] MEDS: ONDANSETRON 4 MG INJ IV (09:12)
[2019-01-12] MEDS: hydrALAzine 20 MG INJ IV (10:31)
[2019-01-12] MEDS: clonAZEPAM 0.5 MG TAB PO (10:32)
[2019-01-12] MEDS: ASA/ACETAMINOPHEN/CAFF TAB PO (15:51)
[2019-01-12] MEDS: LORAZEPAM 2 MG INJ IV (19:10)
== END 2019-01-12 19:23 | DRG 391 ==
LOC: E/R 02:16 → MS1 05:38 → 6WM 19:10
PROC: 5A1D70Z Performance of Urinary Filtration, Intermittent, Less than 6 Hours Per Day (ICD-10-PCS; 2019-01-10)
PROC: 0W993ZZ Drainage of Right Pleural Cavity, Percutaneous Approach (ICD-10-PCS; principal; 2019-01-11)
PROC: 5A1D70Z Performance of Urinary Filtration, Intermittent, Less than 6 Hours Per Day (ICD-10-PCS; 2019-01-11)
PROC: 5A1D70Z Performance of Urinary Filtration, Intermittent, Less than 6 Hours Per Day (ICD-10-PCS; 2019-01-12)
DX: K52.9 Noninfective gastroenteritis and colitis, unspecified (principal); N18.6 End stage renal disease; I12.0 Hypertensive chronic kidney disease with stage 5 chronic kidney disease or end stage renal disease; E46 Unspecified protein-calorie malnutrition; R10.9 Unspecified abdominal pain; K59.00 Constipation, unspecified; K31.84 Gastroparesis; R51 Headache; Z99.2 Dependence on renal dialysis; Z68.23 Body mass index [BMI] 23.0-23.9, adult; F31.9 Bipolar disorder, unspecified; R53.81 Other malaise; R60.1 Generalized edema; D64.9 Anemia, unspecified; E78.5 Hyperlipidemia, unspecified; E03.9 Hypothyroidism, unspecified; F32.9 Major depressive disorder, single episode, unspecified; F41.9 Anxiety disorder, unspecified
CPT/HCPCS: 36415; 71045; 74176; 74177; 76604; 76705; 76942; 80053; 83690; 83735; 84100; 84484; 85025; 90935; 93005; 96374; 96375; 99285-25; G0378